=== PATIENT | male | born 1970 | race Two or more races ===

== ENCOUNTER 2017-11-27 23:07 | Observation (INO) | payer BC ==
[2017-11-27] MEDS ORDERED: SODIUM CHLORIDE 0.9% 1,000 ML IV STA ×2 (23:24)
[2017-11-27] MEDS ORDERED: ASPIRIN 81 MG PO STA (23:24)
[2017-11-27] MEDS ORDERED: NITROGLYCERIN SL TABS 0.4 MG TAB SUBLINGUAL PRN (23:24)
[2017-11-27 23:34] LABS: Basophils % (A) 1 %; Eosinophils # (A) 0.3 k/uL (0-0.7); Eosinophils % (A) 4 %; HCT 41.1 % (39.0-53.0); HGB 14.1 gm/dL (13.0-17.5); Lymphocytes # (A) 2.2 k/uL (1.0-4.8); Lymphocytes % (A) 27 %; MCH 30.3 pg (25.0-35.0); MCHC 34.3 g/dL (31.0-37.0); MCV 88.4 fL (80.0-100.0); Mean Platelet Volume 6.9; Monocytes # (A) 0.5 k/uL (0-1.0); Monocytes % (A) 6 %; Neutrophils # (A) 5.1 k/uL (1.3-7.7); Neutrophils % (A) 62 %; Platelet Count 273 k/uL (150-450); RBC 4.65 m/uL (4.30-5.90); RDW 12.9 % (11.5-15.5); WBC 8.3 k/uL (3.8-10.6)
[2017-11-27] MEDS ORDERED: HEPARIN SODIUM,PORCINE 5,000 UNIT/ML 1 ML VIAL IV PRN (23:37)
[2017-11-27] MEDS ORDERED: HEPARIN SODIUM,PORCINE 5,000 UNIT/ML 1 ML VIAL IV ONE (23:37)
--- NOTE | 2017-11-27 23:37 | ED ---
General Adult HPI - General Chief complaint: Chest Pain Stated complaint: Chest pain Time Seen by Provider: 11/27/17 23:24 Source: patient, RN notes reviewed, old records reviewed Mode of arrival: ambulatory Limitations: no limitations - History of Present Illness Initial comments: This is a 47-year-old male the ER for evaluation regarding chest pain. Patient has left-sided chest pain left-sided heaviness. Patient's history of high blood pressure strong family history of heart disease. Patient has had pain for about a week or more episodic. Patient has been seen by family doctor was told may have bronchitis, he also had outpatient stress test and echo. Patient is jaw pain occasionally with radiation down his left arm. Patient currently is pain-free - Related Data Home Medications Medication Instructions Recorded Confirmed Budesonide/Formoterol Fumarate 2 puff INHALATION RT-DAILY PRN 11/27/17 11/27/17 [Symbicort 160-4.5 Mcg Inhaler] Cyclobenzaprine [Flexeril] 10 mg PO BID 11/27/17 11/27/17 HYDROcodone/APAP 7.5-325MG [[place] 1 tab PO TID PRN 11/27/17 11/27/17 7.5-325] Losartan [Cozaar] 50 mg PO DAILY 11/27/17 11/27/17 Naproxen [Naprosyn] 375 mg PO BID 11/27/17 11/27/17 amLODIPine [Norvasc] 10 mg PO DAILY 11/27/17 11/27/17 Previous Rx's Medication Instructions Recorded Atorvastatin [Lipitor] 40 mg PO DAILY #30 tab 11/28/17 Allergies Allergy/AdvReac Type Severity Reaction Status Date / Time No Known Allergies Allergy Verified 11/27/17 23:11 Review of Systems ROS Statement: Those systems with pertinent positive or pertinent negative responses have been documented in the HPI. ROS Other: All systems not noted in ROS Statement are negative. Past Medical History Past Medical History: Hypertension History of Any Multi-Drug Resistant Organisms: None Reported Past Surgical History: Bowel Resection Past Psychological History: No Psychological Hx Reported Smoking Status: Never smoker Past Alcohol Use History: Occasional Past Drug Use History: None Reported - Past Family History Mother Family Medical History: No Reported History Father Family Medical History: Coronary Artery Disease (CAD), Myocardial Infarction ([place] ) Additional Family Medical History / Comment(s): Pt believes his father has had more than one NV with the first one being at age 47yrs. Father has had open heart surgery twice and has several stents. General Exam Limitations: no limitations General appearance: alert, in no apparent distress Head exam: Present: atraumatic, normocephalic, normal inspection Eye exam: Present: normal appearance, PERRL, EOMI. Absent: scleral icterus, conjunctival injection, periorbital swelling ENT exam: Present: normal exam, mucous membranes moist Neck exam: Present: normal inspection. Absent: tenderness, meningismus, lymphadenopathy Respiratory exam: Present: normal lung sounds bilaterally. Absent: respiratory distress, wheezes, rales, rhonchi, stridor Cardiovascular Exam: Present: regular rate, normal rhythm, normal heart sounds. Absent: systolic murmur, diastolic murmur, rubs, gallop, clicks GI/Abdominal exam: Present: soft, normal bowel sounds. Absent: distended, tenderness, guarding, rebound, rigid Extremities exam: Present: normal inspection, full ROM, normal capillary refill. Absent: tenderness, pedal edema, joint swelling, calf tenderness Back exam: Present: normal inspection Neurological exam: Present: alert, oriented X3, CN II-XII intact Psychiatric exam: Present: normal affect, normal mood Skin exam: Present: warm, dry, intact, normal color. Absent: rash Course Vital Signs 11/27/17 11/27/17 11/27/17 23:09 23:26 23:43 Temperature 97.7 F 99.6 F Pulse Rate 96 Pulse Rate [ 88 Therapy Assistant ] Respiratory 20 19 Rate Blood Pressure 135/82 O2 Sat by Pulse 98 Oximetry 11/28/17 11/28/17 11/28/17 00:12 00:51 01:42 Temperature 97.9 F Pulse Rate 78 75 69 Pulse Rate [ Therapy Assistant ] Respiratory 18 15 17 Rate Blood Pressure 142/85 141/76 133/96 O2 Sat by Pulse 97 97 96 Oximetry 11/28/17 11/28/17 11/28/17 02:40 04:00 05:13 Temperature Pulse Rate 68 61 63 Pulse Rate [ Therapy Assistant ] Respiratory 17 17 18 Rate Blood Pressure 128/74 130/72 134/78 O2 Sat by Pulse 98 98 97 Oximetry 11/28/17 11/28/17 11/28/17 07:05 08:59 10:56 Temperature 97.7 F 98.1 F Pulse Rate 77 62 60 Pulse Rate [ Therapy Assistant ] Respiratory 18 18 18 Rate Blood Pressure 132/84 133/87 132/80 O2 Sat by Pulse 98 95 Oximetry - Reevaluation(s) Reevaluation #1: 11/27/17 23:36 Request made for patient stress test and echo out of [facility] Reevaluation #2: 11/27/17 23:36 Patient has occasional chest pain here in the ER EKG Findings - EKG Comments: EKG Findings:: EKG shows normal sinus rhythm rate of 84, [place] 164, QRS 112, QTc 458 Medical Decision Making - Medical Decision Making 47 male the ER for evasive chest pain history of heart disease family history and high blood pressure. Recent had and conclusive stress test, patient to be admitted for cardiac observation - Lab Data Result diagrams: 11/28/17 05:17 11/27/17 23:24 Lab Results 11/27/17 11/27/17 11/27/17 Range/Units 23:24 23:24 23:24 WBC 8.3 (3.8-10.6) k/uL RBC 4.65 (4.30-5.90) m/uL Hgb 14.1 (13.0-17.5) gm/dL Hct 41.1 (39.0-53.0) % MCV 88.4 (80.0-100.0) fL MCH 30.3 (25.0-35.0) pg MCHC 34.3 (31.0-37.0) g/dL RDW 12.9 (11.5-15.5) % Plt Count 273 (150-450) k/uL Neutrophils % 62 % Lymphocytes % 27 % Monocytes % 6 % Eosinophils % 4 % Basophils % 1 % Neutrophils # 5.1 (1.3-7.7) k/uL Lymphocytes # 2.2 (1.0-4.8) k/uL Monocytes # 0.5 (0-1.0) k/uL Eosinophils # 0.3 (0-0.7) k/uL Basophils # 0.0 (0-0.2) k/uL PT (9.0-12.0) sec INR (<1.2) APTT (22.0-30.0) sec D-Dimer (<0.60) mg/L FEU Sodium 142 (137-145) mmol/L Potassium 3.9 (3.5-5.1) mmol/L Chloride 104 (98-107) mmol/L Carbon Dioxide 26 (22-30) mmol/L Anion Gap 12 mmol/L BUN 15 (9-20) mg/dL Creatinine 0.90 (0.66-1.25) mg/dL Est GFR (MDRD) Af Amer >60 (>60 ml/min/1.73 sqM) Est GFR (MDRD) Non-Af >60 (>60 ml/min/1.73 sqM) Glucose 142 H (74-99) mg/dL Calcium 9.9 (8.4-10.2) mg/dL Magnesium 2.0 (1.6-2.3) mg/dL Total Bilirubin 0.6 (0.2-1.3) mg/dL AST 22 (17-59) U/L ALT 43 (21-72) U/L Alkaline Phosphatase 93 (38-126) U/L Total Creatine Kinase 118 (55-170) U/L CK-MB (CK-2) 0.5 (0.0-2.4) ng/mL CK-MB (CK-2) Rel Index 0.4 Troponin I <0.012 (0.000-0.034) ng/mL Total Protein 7.1 (6.3-8.2) g/dL Albumin 4.4 (3.5-5.0) g/dL Lipase 54 (23-300) U/L 11/27/17 Range/Units 23:24 WBC (3.8-10.6) k/uL RBC (4.30-5.90) m/uL Hgb (13.0-17.5) gm/dL Hct (39.0-53.0) % MCV (80.0-100.0) fL MCH (25.0-35.0) pg MCHC (31.0-37.0) g/dL RDW (11.5-15.5) % Plt Count (150-450) k/uL Neutrophils % % Lymphocytes % % Monocytes % % Eosinophils % % Basophils % % Neutrophils # (1.3-7.7) k/uL Lymphocytes # (1.0-4.8) k/uL Monocytes # (0-1.0) k/uL Eosinophils # (0-0.7) k/uL Basophils # (0-0.2) k/uL PT 9.8 (9.0-12.0) sec INR 1.0 (<1.2) APTT 24.3 (22.0-30.0) sec D-Dimer 0.26 (<0.60) mg/L FEU Sodium (137-145) mmol/L Potassium (3.5-5.1) mmol/L Chloride (98-107) mmol/L Carbon Dioxide (22-30) mmol/L Anion Gap mmol/L BUN (9-20) mg/dL Creatinine (0.66-1.25) mg/dL Est GFR (MDRD) Af Amer (>60 ml/min/1.73 sqM) Est GFR (MDRD) Non-Af (>60 ml/min/1.73 sqM) Glucose (74-99) mg/dL Calcium (8.4-10.2) mg/dL Magnesium (1.6-2.3) mg/dL Total Bilirubin (0.2-1.3) mg/dL AST (17-59) U/L ALT (21-72) U/L Alkaline Phosphatase (38-126) U/L Total Creatine Kinase (55-170) U/L CK-MB (CK-2) (0.0-2.4) ng/mL CK-MB (CK-2) Rel Index Troponin I (0.000-0.034) ng/mL Total Protein (6.3-8.2) g/dL Albumin (3.5-5.0) g/dL Lipase (23-300) U/L - Radiology Data Radiology results: report reviewed (Chest x-rays negative for acute disease), image reviewed Critical Care Time Critical Care Time: Yes Total Critical Care Time: 31 Disposition Clinical Impression: Chest pain Disposition: ADMITTED IP TO THIS [facility] Condition: Undetermined
[2017-11-27 23:43] LABS: ALT 43 U/L (21-72); AST 22 U/L (17-59); Albumin 4.4 g/dL (3.5-5.0); Alkaline Phosphatase 93 U/L (38-126); Anion Gap 12 mmol/L; Blood Urea Nitrogen 15 mg/dL (9-20); Calcium 9.9 mg/dL (8.4-10.2); Carbon Dioxide 26 mmol/L (22-30); Chloride 104 mmol/L (98-107); Glucose 142 mg/dL (74-99); Lipase 54 U/L (23-300); Potassium 3.9 mmol/L (3.5-5.1); Sodium 142 mmol/L (137-145); Total Bilirubin 0.6 mg/dL (0.2-1.3); Total Protein 7.1 g/dL (6.3-8.2)
[2017-11-27] MEDS ORDERED: HEPARIN SOD,PORK IN 0.45% NACL 25,000 UNIT in 0.45% NACL 1 500ML.BAG IV SCH (23:45)
[2017-11-27 23:49] LABS: D-Dimer 0.26 mg/L FEU (<0.60); Partial Thromboplastin Time 24.3 sec (22.0-30.0); Prothrombin Time 9.8 sec (9.0-12.0)
[2017-11-27 23:54] LABS: Creatine Kinase 118 U/L (55-170)
[2017-11-28 00:07] LABS: Creatine Kinase MB 0.5 ng/mL (0.0-2.4); Troponin I <0.012 ng/mL (0.000-0.034)
--- NOTE | 2017-11-28 00:13 | XR ---
EXAMINATION TYPE: XR chest 2V DATE OF EXAM: 11/28/2017 COMPARISON: NONE HISTORY: Chest pain TECHNIQUE: Frontal and lateral views of the chest are obtained. FINDINGS: Heart and mediastinum are normal. Lungs are clear. Costophrenic angles are clear. There ar e no hilar masses. There are chest leads. Bony thorax is intact. IMPRESSION: Normal chest
[2017-11-28 05:28] LABS: Basophils % (A) 1 %; Eosinophils # (A) 0.3 k/uL (0-0.7); Eosinophils % (A) 5 %; HGB 14.2 gm/dL (13.0-17.5); Lymphocytes # (A) 2.4 k/uL (1.0-4.8); Lymphocytes % (A) 34 %; MCH 30.9 pg (25.0-35.0); MCHC 33.7 g/dL (31.0-37.0); MCV 91.7 fL (80.0-100.0); Mean Platelet Volume 6.7; Monocytes # (A) 0.4 k/uL (0-1.0); Monocytes % (A) 6 %; Neutrophils # (A) 3.6 k/uL (1.3-7.7); Neutrophils % (A) 52 %; Platelet Count 259 k/uL (150-450); RBC 4.58 m/uL (4.30-5.90); RDW 12.8 % (11.5-15.5)
[2017-11-28 05:55] LABS: Cholesterol 150 mg/dL (<200); Creatine Kinase 91 U/L (55-170); HDL Cholesterol 41 mg/dL (40-60); LDL Cholesterol,Calculated 86 mg/dL (0-99); Triglycerides 117 mg/dL (<150)
[2017-11-28 06:07] LABS: Creatine Kinase MB 0.3 ng/mL (0.0-2.4); Troponin I <0.012 ng/mL (0.000-0.034)
[2017-11-28] MEDS ORDERED: ACETAMINOPHEN TAB 325 MG TAB PO PRN (08:56)
[2017-11-28] MEDS ORDERED: ASPIRIN 325 MG TAB PO SCH (09:00)
[2017-11-28] MEDS ORDERED: METOPROLOL TARTRATE 25 MG TAB PO SCH (09:00)
[2017-11-28] MEDS ORDERED: ATORVASTATIN 80 MG TAB PO SCH (09:00)
[2017-11-28] MEDS ORDERED: ALPRAZolam 0.5 MG TAB PO PRN (10:07)
[2017-11-28] MEDS ORDERED: ALPRAZolam 0.25 MG TAB PO PRN (10:07)
[2017-11-28] MEDS ORDERED: SODIUM CHLORIDE 0.9% 1,000 ML in EMPTY BAG 1 BAG IV ONE (10:07)
[2017-11-28] MEDS ORDERED: ATORVASTATIN 80 MG TAB PO STA (10:08)
--- NOTE | 2017-11-28 10:14 | P.CRDCN ---
History of Present Illness Consult date: 11/28/17 Consult reason: chest pain History of present illness: Mr. Valladares is a pleasant 47-year-old male past medical history significant for hypertension, gastroesophageal reflux disease, former tobacco use and family history of heart attack with his father at the age of 47. He denies personal history of coronary artery disease and has never seen a diet aid for any reason. We have been asked to see him in consultation for complaints of chest pain. He states he has been having intermittent heavy sensation to the left precordial region that radiates into his neck, back, left should and left arm. He complains of associated shortness of breath, palpitations and diaphoresis. Denies dizziness, nausea or vomiting. The pains come and go and seem worse at rest than with exertion. He recently saw his PCP for similar complaints and underwent an exercise stress test but didn't reach his target heart rate. Although he did exercise for over 9 minutes. An echocardiogram performed at that time revealed preserved LV systolic function with EF 65%. At the time of my exam he is chest pain free and resting comfortably on the cart in the emergency center. EKG reveals sinus mechanism with T-wave inversion in inferior leads that is consistent with old EKG from [facility] taken during his stress test. Chest xray is negative for an acute cardiopulmonary process. Laboratory data reviewed, hemoglobin 14.2, platelets 259, d-dimer 0.26, potassium 3.9, magnesium 2.0, creatinine 0.9, EF greater than 60, cardiac enzymes negative 2, LDL 86. Current cardiac medications include amlodipine 10 mg daily losartan 50 mg daily. Review of Systems At the time of my exam: CONSTITUTIONAL: Denies fever. Denies chills. EYES: Denies blurred vision. Denies vision changes. Denies eye pain. EARS, NOSE, MOUTH & THROAT: Denies headache. Denies sore throat. Denies ear pain. CARDIOVASCULAR: Denies chest pain. Denies shortness of breath. Denies orthopnea. Denies PND. Denies palpitations. RESPIRATORY: Denies cough. GASTROINTESTINAL: Denies abdominal pain. Denies diarrhea. Denies constipation. Denies nausea. Denies vomiting. MUSCULOSKELETAL: Denies myalgias. INTEGUMENTARY: Denies pruitis. Denies rash. NEUROLOGIC: Denies numbness. Denies tingling. Denies weakness. PSYCHIATRIC: Denies anxiety. Denies depression. ENDOCRINE: Denies fatigue. Denies weight change. Denies polydipsia. Denies polyurina. GENITOURINARY: Denies burning, hematuria or urgency with micturation. HEMATOLOGIC: Denies history of anemia. Denies bleeding. Past Medical History Past Medical History: GERD/Reflux, Hypertension, Pneumonia Additional Past Medical History / Comment(s): Chronic low back pain L4/L5, pt states asbestos exposure thru work, diverticulitis. History of Any Multi-Drug Resistant Organisms: None Reported Past Surgical History: Bowel Resection, Tonsillectomy Additional Past Surgical History / Comment(s): Colonoscopy, bowel resection d/t diverticulitis. Past Anesthesia/Blood Transfusion Reactions: No Reported Reaction Smoking Status: Former smoker - Past Family History Mother Family Medical History: No Reported History Father Family Medical History: Coronary Artery Disease (CAD), Myocardial Infarction ([place] ) Additional Family Medical History / Comment(s): Pt believes his father has had more than one UT with the first one being at age 47yrs. Father has had open heart surgery twice and has several stents. Medications and Allergies Home Medications Medication Instructions Recorded Confirmed Type Budesonide/Formoterol Fumarate 2 puff INHALATION RT-DAILY PRN 11/27/17 11/27/17 History [Symbicort 160-4.5 Mcg Inhaler] Cyclobenzaprine [Flexeril] 10 mg PO BID 11/27/17 11/27/17 History HYDROcodone/APAP 7.5-325MG [[place] 1 tab PO TID PRN 11/27/17 11/27/17 History 7.5-325] Losartan [Cozaar] 50 mg PO DAILY 11/27/17 11/27/17 History Naproxen [Naprosyn] 375 mg PO BID 11/27/17 11/27/17 History amLODIPine [Norvasc] 10 mg PO DAILY 11/27/17 11/27/17 History Allergies Allergy/AdvReac Type Severity Reaction Status Date / Time No Known Allergies Allergy Verified 11/27/17 23:11 Physical Exam Vitals: Vital Signs Temp Pulse Pulse Resp BP Pulse Ox 11/28/17 08:59 97.7 F 62 18 133/87 11/28/17 07:05 77 18 132/84 98 11/28/17 05:13 63 18 134/78 97 03/01/18 04:00 61 17 130/72 98 11/28/17 02:40 68 17 128/74 98 11/28/17 01:42 69 17 133/96 96 11/28/17 00:51 97.9 F 75 15 141/76 97 11/28/17 00:12 78 18 142/85 97 11/27/17 23:43 99.6 F 11/27/17 23:26 88 19 11/27/17 23:09 97.7 F 96 20 135/82 98 Intake and Output 11/27/17 11/28/17 11/28/17 22:59 06:59 14:59 Intake Total 143.667 Balance 143.667 Intake: Intake, IV Titration 143.667 Amount Heparin Sod,Pork in 0.45% 143.667 NaCl 25,000 unit In 0.45 % NaCl 1 500ml.bag @ 8.2 UNITS/KG/HR 20.08 mls/hr IV .Q24H [facility] Rx#: [id number] Other: Weight 122.47 kg Blood pressure 133/87 heart rate 62 afebrile GENERAL: This is a 47-year-old male in no apparent distress at the time of my examination. Obese. HEENT: Head is atraumatic, normocephalic. Pupils are equal, round. Sclerae anicteric. Conjunctivae are clear. Mucous membranes of the mouth are moist. Neck is supple. There is no jugular venous distention. No carotid bruit is heard. LUNGS: Clear to auscultation no wheezes, rales or rhonchi. No chest wall tenderness is noted on palpation or with deep breathing. HEART: Regular rate and rhythm without murmurs, rubs or gallops. S1 and S2 heard. ABDOMEN: Soft, nontender. Bowel sounds are heard. No organomegaly noted. EXTREMITIES: No evidence of peripheral edema and no calf tenderness noted. VASCULAR: Radial and dorsalis pedis pulses palpated, no evidence of clubbing. NEUROLOGIC: Patient is awake, alert and oriented x3. Results 11/28/17 05:17 11/27/17 23:24 Cardiac Enzymes 11/27/17 11/27/17 11/28/17 Range/Units 23:24 23:24 05:17 AST 22 (17-59) U/L CK-MB (CK-2) 0.5 0.3 (0.0-2.4) ng/mL Troponin I <0.012 <0.012 (0.000-0.034) ng/mL Coagulation 11/27/17 11/28/17 Range/Units 23:24 05:17 PT 9.8 (9.0-12.0) sec APTT 24.3 27.3 (22.0-30.0) sec Lipids 11/28/17 Range/Units 05:17 Triglycerides 117 (<150) mg/dL Cholesterol 150 (<200) mg/dL HDL Cholesterol 41 (40-60) mg/dL CBC 11/27/17 11/28/17 Range/Units 23:24 05:17 WBC 8.3 7.0 (3.8-10.6) k/uL RBC 4.65 4.58 (4.30-5.90) m/uL Hgb 14.1 14.2 (13.0-17.5) gm/dL Hct 41.1 42.0 (39.0-53.0) % Plt Count 273 259 (150-450) k/uL Comprehensive Metabolic Panel 11/27/17 Range/Units 23:24 Sodium 142 (137-145) mmol/L Potassium 3.9 (3.5-5.1) mmol/L Chloride 104 (98-107) mmol/L Carbon Dioxide 26 (22-30) mmol/L BUN 15 (9-20) mg/dL Creatinine 0.90 (0.66-1.25) mg/dL Glucose 142 H (74-99) mg/dL Calcium 9.9 (8.4-10.2) mg/dL AST 22 (17-59) U/L ALT 43 (21-72) U/L Alkaline Phosphatase 93 (38-126) U/L Total Protein 7.1 (6.3-8.2) g/dL Albumin 4.4 (3.5-5.0) g/dL Current Medications Generic Name Dose Route Start Last Admin Trade Name Freq PRN Reason Stop Dose Admin Acetaminophen 650 mg 11/28/17 08:56 11/28/17 09:00 Tylenol Tab PO 650 mg Q6HR PRN Administration Fever and/ or Pain Aspirin 325 mg 11/28/17 09:00 03/01/18 09:00 Aspirin PO 325 mg DAILY RADHA Administration Atorvastatin Calcium 80 mg 11/28/17 09:00 11/28/17 09:01 Lipitor PO 80 mg DAILY RADHA Administration Heparin Sodium (Porcine) 0 unit 11/27/17 23:37 11/28/17 07:30 Heparin IV 4,000 unit PER PROTOCOL PRN Administration Low PTT Protocol Heparin Sodium/Sodium Chloride 500 mls @ 20.08 mls/hr 11/27/17 23:45 07:20 25,000 unit/ Sodium Chloride IV 11.16 units/kg/hr .Q24H RADHA 27.33 mls/hr Protocol Titration 8.2 UNITS/KG/HR Metoprolol Tartrate 25 mg 11/28/17 09:00 11/28/17 09:01 Lopressor PO 25 mg BID RADHA Administration Nitroglycerin 0.4 mg 11/27/17 23:24 Nitrostat SUBLINGUAL Q5M PRN Chest Pain Intake and Output 11/27/17 11/28/17 11/28/17 22:59 06:59 14:59 Intake Total 143.667 Balance 143.667 Intake: Intake, IV Titration 143.667 Amount Heparin Sod,Pork in 0.45% 143.667 NaCl 25,000 unit In 0.45 % NaCl 1 500ml.bag @ 8.2 UNITS/KG/HR 20.08 mls/hr IV .Q24H [facility] Rx#: [id number] Other: Weight 122.47 kg 11/28/17 05:17 11/27/17 23:24 Assessment and Plan Assessment: ASSESSMENT 1. Unstable angina, negative cardiac enzymes with inferior T-wave inversion on EKG 2. Hypertension, controlled on amlodipine and losartan 3. Tobacco use, quit smoking 2007 but continues to chew tobacco 4. Obesity, BMI 37.7 5. Significant family history of CAD, father having [place] with multiple stents and bypass starting in 's. PLAN We recommend he proceed with cardiac catheterization to assess for coronary artery disease. I have discussed the risks, benefits and alternative therapies for the above-mentioned procedure and for both sedation/analgesia as well as necessary blood product administration, if indicated, as they pertain to this patient. The patient has indicated understanding and acceptance of the risks and procedures discussed. Questions have been answered appropriately and he is agreeable to move forward with the above stated procedure. Orders have been placed and he has been reported with the [employer] [facility]. Further recommendations will be based upon clinical course. Nurse Practitioner note has been reviewed, I agree with a documented findings and plan of care. Patient was seen and examined.
[2017-11-28 10:58] VITALS: TEMP 98.1
[2017-11-28 11:03] LABS: Glucose,Whole Blood 105 mg/dL (75-99)
[2017-11-28] MEDS ORDERED: MIDAZOLAM 2 MG/2 ML VIAL ONE (11:26)
[2017-11-28] MEDS ORDERED: LIDOCAINE 2% INJ 20 MG/ML (20 ML MDV) ONE (11:26)
[2017-11-28] MEDS ORDERED: fentaNYL (PF) 50 MCG/ML 2 ML AMP ONE (11:26)
[2017-11-28 11:44] LABS: Creatine Kinase 86 U/L (55-170)
[2017-11-28] MEDS ORDERED: LIDOCAINE 2% INJ 20 MG/ML SQ ONE (11:50)
[2017-11-28] MEDS ORDERED: MIDAZOLAM 2 MG/2 ML VIAL IVP ONE (11:51)
[2017-11-28] MEDS ORDERED: fentaNYL (PF) 50 MCG/ML 2 ML AMP IVP ONE (11:51)
[2017-11-28 11:56] LABS: Creatine Kinase MB 0.3 ng/mL (0.0-2.4); Troponin I <0.012 ng/mL (0.000-0.034)
[2017-11-28] MEDS ORDERED: IOHEXOL 350 MG/ML 125ML BOTTLE INJ ONE (12:07)
[2017-11-28] MEDS ORDERED: SODIUM CHLORIDE 0.9% 1,000 ML IV ONE (12:08)
[2017-11-28] MEDS ORDERED: RX INFO: IV CONTRAST WAS GIVEN 1 EACH MISC MISCELLANE PRN (12:18)
[2017-11-28] MEDS ORDERED: SODIUM CHLORIDE 0.9% 1,000 ML IV SCH (12:30)
--- NOTE | 2017-11-28 12:51 | CC ---
CARDIAC CATHETERIZATION REPORT CARDIAC CATHETERIZATION REPORT: Mr. Valladares is a 47-year-old gentleman who was admitted to the hospital with a prolonged episode of chest pain suggestive of unstable angina syndrome. The patient had a recent stress test which was inconclusive to diagnose ischemia. Patient's EKGs and cardiac enzymes were normal. In view of the recurrent episodes of the resting pain, patient was recommended to have a cardiac catheterization for definitive diagnosis. PROCEDURE: The right groin was prepped and draped in the usual manner and the skin was infiltrated with 2% Xylocaine. The right femoral artery was entered using Seldinger technique, a #6-[place] sheath was placed in. Selective coronary angiography was then performed in multiple projections. The left ventriculography was performed in 30 degree TOUSSAINT projection. Patient tolerated the procedure well. . Moderate sedation was used. The total sedation time was 24 minutes. HEMODYNAMICS: Left ventricular end-diastolic pressure is 12 mmHg prior to angiography. No gradient is noted across the aortic valve. SELECTIVE CORONARY ANGIOGRAPHY: Left main coronary artery is normally patent. LAD is a good caliber blood vessel and gives rise to a good size diagonal branch. LAD is normal. Circumflex coronary artery has minimal irregularity. Right coronary artery has a mild irregularity in its distal portion without any significant stenosis. Left ventriculography reveals normal, left ventricular systolic function. FINAL IMPRESSION: 1. This study reveals minimal coronary artery disease with stenosis less than 30%. 2. Left ventriculography reveals normal left ventricular systolic functions. RECOMMENDATIONS: Medical treatment and aggressive risk factor modification. MMODL / IJN: [id number] /
[2017-11-28 14:45] VITALS: RESP 16
[2017-11-28 15:56] VITALS: BP 125/72; PULSE 72
--- NOTE | 2017-11-28 18:25 | HP ---
HISTORY AND PHYSICAL HISTORY AND PHYSICAL AND DISCHARGE SUMMARY: DATE OF ADMISSION: 11/27/2017. DATE OF DISCHARGE: 11/28/2017 FINAL DIAGNOSES: 1. Anterior chest wall pain, possibly musculoskeletal. 2. Gastroesophageal reflux disease. 3. Essential hypertension. 4. Chronic low back pain in the lumbar L4-L5 area. PRESENTING COMPLAINT: Chest pain. HISTORY OF PRESENTING COMPLAINT: This is a very pleasant 47-year-old patient of Dr. Toney Colon out of [facility]. Chronic stable medical conditions include GERD, hypertension, lumbar back pain in the L4-L5 area. Patient presented with feeling a heavy sensation across the chest going up to the neck. Patient went to work and later felt a little bit just unwell, tired. There was no shortness of breath. Patient is rather active otherwise. He decided to come in. Patient was admitted for a cardiac workup. REVIEW OF SYSTEMS: CONSTITUTIONAL: None. HEENT: None. RESPIRATORY: None. CARDIOVASCULAR: As above. GASTROINTESTINAL: Heartburn. GENITOURINARY: None. MUSCULOSKELETAL: Chronic low back pain. DERMATOLOGICAL: None. HEMATOLOGICAL: None. LYMPHATICS: None. PSYCHIATRY: None. NEUROLOGICAL: None. PAST MEDICAL HISTORY: 1. GERD. 2. Hypertension. 3. Lumbar spine pain. 4. Diverticulitis. PAST SURGICAL HISTORY: 1. Bowel resection. 2. Tonsillectomy. 3. Colonoscopy. 4. Some bowel resection due to diverticulitis. SOCIAL HISTORY: . 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 Smoked for about 20 years; stopped in 2007. Patient does chew tobacco. FAMILY HISTORY: Father probably in his late 40s had coronary artery disease. HOME MEDICATIONS: 1. Symbicort 160/4.5 two puffs daily p.r.n. 2. Flexeril 10 mg b.i.d. 3. Lydia 7.5 one tablet p.o. t.i.d. p.r.n. 4. Cozaar 50 mg p.o. daily. 5. Naproxen 375 p.o. b.i.d. 6. Norvasc 10 mg p.o. daily. ALLERGIES: NONE. PHYSICAL EXAMINATION: VITAL SIGNS ON PRESENTATION: Temperature 97.7, pulse 92, respiration 20, blood pressure 135/82, pulse ox 98% on room air. GENERAL APPEARANCE: Well built, BMI 37.7. Sitting up, not in distress. EYES: Pupils equal. Conjunctivae normal. HEENT: External appearance of nose and ears normal. Oral cavity normal. NECK: JVD not raised. Mass not palpable. RESPIRATORY: Effort normal. Lungs are clear. CARDIOVASCULAR: First and second sounds normal. No edema. ABDOMEN: Soft, nontender. Liver and spleen not palpable. LYMPHATIC: No lymph node palpable in neck or axillae. PSYCHIATRY: Alert and oriented x3. Mood and affect normal. NEUROLOGICAL: Pupils equal. Cranial nerves grossly intact. Power and sensation grossly intact. INVESTIGATIONS: White count 8.3, hemoglobin 14.1. Troponin x3 negative. EKG normal sinus rhythm. Cardiac catheterization showed minimal coronary artery disease with stenosis less than 30%. ADDITIONAL HOSPITAL COURSE: The patient was admitted with the above symptoms. Patient then was taken for a cardiac catheterization, found to have minimal disease. Patient therefore is being discharged home. DISCHARGE MEDICATIONS: 1. Lipitor 40 mg a day. 2. Norvasc 10 mg a day. 3. Naproxen 375 p.o. b.i.d. 4. Cozaar 50 mg a day. 5. Lydia 7.5 one tablet p.o. t.i.d. p.r.n. 6. Flexeril 10 mg p.o. b.i.d. 7. Symbicort 160/4.5 two puffs as before. Follow up with Dr. Toney Colon on 11/29/2017. Follow up with Dr. Rl Thompson on 12/04/2017. Post-catheterization instructions were given. MMODL / IJN: [id number] /
[2017-11-29] MEDS ORDERED: amLODIPine 10 MG TAB PO SCH (09:00)
[2017-11-29] MEDS ORDERED: ATORVASTATIN 40 MG TAB PO SCH (09:00)
[2017-11-29] MEDS ORDERED: LOSARTAN 50 MG TAB PO SCH (09:00)
== END 2017-11-28 16:46 | disposition home or self-care (01) ==
LOC: EC 23:07 → 3OBS 23:36
PROVIDERS: ADMIT Hospitalist; ATTEND Hospitalist
DX: R07.89 Other chest pain (principal); R07.2 Precordial pain; R06.02 Shortness of breath; R61 Generalized hyperhidrosis; R00.2 Palpitations; K21.9 Gastro-esophageal reflux disease without esophagitis; I10 Essential (primary) hypertension; G89.29 Other chronic pain; M54.5 Low back pain; E66.9 Obesity, unspecified; Z68.37 Body mass index [BMI] 37.0-37.9, adult; Z82.49 Family history of ischemic heart disease and other diseases of the circulatory system; Z79.899 Other long term (current) drug therapy; F17.220 Nicotine dependence, chewing tobacco, uncomplicated; Z79.1 Long term (current) use of non-steroidal anti-inflammatories (NSAID); Z87.01 Personal history of pneumonia (recurrent); Z77.090 Contact with and (suspected) exposure to asbestos
CPT/HCPCS: 99291; 96365 ×2; 96366 ×10; 96376 ×3; 36415; 93005; 93458; 85379; 80061; 80053; 82550 ×2; 82553 ×2; 83690; 83735; 84484 ×2; 85025 ×2; 85610; 85730 ×2; 71046; G0378 ×2; C1894; C1769; J2001; J2250; J1644 ×2; J3010; Q9967

== ENCOUNTER 2020-12-07 16:28 | Emergency (ER) | payer BC ==
[2020-12-07] MEDS ORDERED: ACETAMINOPHEN TAB 500 MG TAB PO STA (17:47)
[2020-12-07 18:17] LABS: Basophils # (A) 0.1 k/uL (0-0.2); Basophils % (A) 2 %; Eosinophils # (A) 0.1 k/uL (0-0.7); Eosinophils % (A) 1 %; HCT 43.6 % (39.0-53.0); HGB 15.6 gm/dL (13.0-17.5); Lymphocytes # (A) 0.6 k/uL (1.0-4.8); Lymphocytes % (A) 14 %; MCH 31.4 pg (25.0-35.0); MCHC 35.8 g/dL (31.0-37.0); MCV 87.6 fL (80.0-100.0); Mean Platelet Volume 7.5; Monocytes # (A) 0.3 k/uL (0-1.0); Monocytes % (A) 7 %; Neutrophils # (A) 3.2 k/uL (1.3-7.7); Neutrophils % (A) 75 %; Platelet Count 174 k/uL (150-450); RBC 4.98 m/uL (4.30-5.90); RDW 12.3 % (11.5-15.5); WBC 4.3 k/uL (3.8-10.6)
[2020-12-07 18:27] LABS: Albumin 4.7 g/dL (3.5-5.0); Magnesium 1.9 mg/dL (1.6-2.3); Potassium 3.5 mmol/L (3.5-5.1); Total Protein 7.4 g/dL (6.3-8.2)
--- NOTE | 2020-12-07 18:31 | XR ---
EXAMINATION TYPE: XR chest 1V portable DATE OF EXAM: 12/07/2020 COMPARISON: NONE HISTORY: Dyspnea TECHNIQUE: Single frontal view of the chest is obtained. FINDINGS: There is no focal air space opacity, pleural effusion, or pneumothorax seen. The cardiac silhouette size is within normal limits. The osseous structures are intact. IMPRESSION: No acute process.
[2020-12-07 18:33] LABS: D-Dimer 0.42 mg/L FEU (<0.60); Partial Thromboplastin Time 25.8 sec (22.0-30.0); Prothrombin Time 10.6 sec (9.0-12.0)
[2020-12-07] MEDS ORDERED: SODIUM CHLORIDE 0.9% 1,000 ML IV STA (18:37)
[2020-12-07] MEDS ORDERED: IBUPROFEN 800 MG TAB PO STA (18:37)
[2020-12-07] MEDS ORDERED: dexAMETHasone 2 MG TAB PO STA (19:14)
--- NOTE | 2020-12-07 19:14 | ED ---
SOB HPI - General Chief Complaint: Shortness of Breath Stated Complaint: Covid+, SOB Time Seen by Provider: 12/07/20 17:46 Source: patient Mode of arrival: ambulatory Limitations: no limitations - History of Present Illness Initial Comments: Patient presents with shortness of breath. He has been sick recently. He has a nonproductive cough. He has no nausea or vomiting. He has no diaphoresis. He has no pain or swelling in the arms or legs. He has no lightheadedness. He denies palpitations. - Related Data Home Medications Medication Instructions Recorded Confirmed Budesonide/Formoterol Fumarate 2 puff INHALATION RT-DAILY PRN 11/27/17 11/27/17 [Symbicort 160-4.5 Mcg Inhaler] Cyclobenzaprine [Flexeril] 10 mg PO BID 11/27/17 11/27/17 HYDROcodone/APAP 7.5-325MG [[place] 1 tab PO TID PRN 11/27/17 11/27/17 7.5-325] Losartan [Cozaar] 50 mg PO DAILY 11/27/17 11/27/17 Naproxen [Naprosyn] 375 mg PO BID 11/27/17 11/27/17 amLODIPine [Norvasc] 10 mg PO DAILY 11/27/17 11/27/17 Previous Rx's Medication Instructions Recorded Atorvastatin [Lipitor] 40 mg PO DAILY #30 tab 11/28/17 Allergies Allergy/AdvReac Type Severity Reaction Status Date / Time Ggkdmbi-Sro-Lnc Reductase Allergy Cough Verified 12/07/20 16:34 Inhibitor Review of Systems ROS Statement: Those systems with pertinent positive or pertinent negative responses have been documented in the HPI. ROS Other: All systems not noted in ROS Statement are negative. Past Medical History Past Medical History: Hypertension Additional Past Medical History / Comment(s): Chronic low back pain L4/L5, pt states asbestos exposure thru work, diverticulitis. History of Any Multi-Drug Resistant Organisms: None Reported Past Surgical History: Bowel Resection Additional Past Surgical History / Comment(s): Colonoscopy, bowel resection d/t diverticulitis. Past Anesthesia/Blood Transfusion Reactions: No Reported Reaction Past Psychological History: No Psychological Hx Reported Smoking Status: Former smoker Past Alcohol Use History: Occasional Past Drug Use History: None Reported - Past Family History Mother Family Medical History: No Reported History Father Family Medical History: Coronary Artery Disease (CAD), Myocardial Infarction (OK) Additional Family Medical History / Comment(s): Pt believes his father has had more than one OK with the first one being at age 47yrs. Father has had open heart surgery twice and has several stents. General Exam Limitations: no limitations General appearance: alert, in no apparent distress Head exam: Present: atraumatic, normocephalic, normal inspection Eye exam: Present: normal appearance, PERRL, EOMI. Absent: scleral icterus, conjunctival injection, periorbital swelling ENT exam: Present: normal exam, mucous membranes moist Neck exam: Present: normal inspection. Absent: tenderness, meningismus, lymphadenopathy Respiratory exam: Present: normal lung sounds bilaterally. Absent: respiratory distress, wheezes, rales, rhonchi, stridor Cardiovascular Exam: Present: regular rate, normal rhythm, normal heart sounds. Absent: systolic murmur, diastolic murmur, rubs, gallop, clicks GI/Abdominal exam: Present: soft, normal bowel sounds. Absent: distended, tenderness, guarding, rebound, rigid Extremities exam: Present: normal inspection, full ROM, normal capillary refill. Absent: tenderness, pedal edema, joint swelling, calf tenderness Back exam: Present: normal inspection Neurological exam: Present: alert, oriented X3, CN II-XII intact Psychiatric exam: Present: normal affect, normal mood Skin exam: Present: warm, dry, intact, normal color. Absent: rash Course Vital Signs 12/07/20 16:30 Temperature 100.3 F H Pulse Rate 92 Respiratory 20 Rate Blood Pressure 121/81 O2 Sat by Pulse 95 Oximetry Medical Decision Making - Medical Decision Making Patient presents with cough. Imaging and laboratory studies are normal. H&H treated with IV therapy. He is stable for discharge. - Lab Data Result diagrams: 12/07/20 18:08 12/07/20 18:08 Lab Results 12/07/20 12/07/20 12/07/20 Range/Units 18:08 18:08 18:08 WBC 4.3 (3.8-10.6) k/uL RBC 4.98 (4.30-5.90) m/uL Hgb 15.6 (13.0-17.5) gm/dL Hct 43.6 (39.0-53.0) % MCV 87.6 (80.0-100.0) fL MCH 31.4 (25.0-35.0) pg MCHC 35.8 (31.0-37.0) g/dL RDW 12.3 (11.5-15.5) % Plt Count 174 (150-450) k/uL MPV 7.5 Neutrophils % 75 % Lymphocytes % 14 % Monocytes % 7 % Eosinophils % 1 % Basophils % 2 % Neutrophils # 3.2 (1.3-7.7) k/uL Lymphocytes # 0.6 L (1.0-4.8) k/uL Monocytes # 0.3 (0-1.0) k/uL Eosinophils # 0.1 (0-0.7) k/uL Basophils # 0.1 (0-0.2) k/uL PT 10.6 (9.0-12.0) sec INR 1.0 (<1.2) APTT 25.8 (22.0-30.0) sec D-Dimer 0.42 (<0.60) mg/L FEU Sodium 135 L (137-145) mmol/L Potassium 3.5 (3.5-5.1) mmol/L Chloride 95 L (98-107) mmol/L Carbon Dioxide 25 (22-30) mmol/L Anion Gap 15 mmol/L BUN 24 H (9-20) mg/dL Creatinine 1.87 H (0.66-1.25) mg/dL Est GFR (CKD-EPI)AfAm 48 (>60 ml/min/1.73 sqM) Est GFR (CKD-EPI)NonAf 41 (>60 ml/min/1.73 sqM) Glucose 115 H (74-99) mg/dL Plasma Lactic Acid Zaheer (0.7-2.0) mmol/L Calcium 9.0 (8.4-10.2) mg/dL Magnesium 1.9 (1.6-2.3) mg/dL Total Bilirubin 1.0 (0.2-1.3) mg/dL AST 45 (17-59) U/L ALT 43 (4-49) U/L Alkaline Phosphatase 46 (38-126) U/L Troponin I (0.000-0.034) ng/mL NT-Pro-B Natriuret Pep pg/mL Total Protein 7.4 (6.3-8.2) g/dL Albumin 4.7 (3.5-5.0) g/dL 12/07/20 12/07/20 12/07/20 Range/Units 18:08 18:08 18:08 WBC (3.8-10.6) k/uL RBC (4.30-5.90) m/uL Hgb (13.0-17.5) gm/dL Hct (39.0-53.0) % MCV (80.0-100.0) fL MCH (25.0-35.0) pg MCHC (31.0-37.0) g/dL RDW (11.5-15.5) % Plt Count (150-450) k/uL MPV Neutrophils % % Lymphocytes % % Monocytes % % Eosinophils % % Basophils % % Neutrophils # (1.3-7.7) k/uL Lymphocytes # (1.0-4.8) k/uL Monocytes # (0-1.0) k/uL Eosinophils # (0-0.7) k/uL Basophils # (0-0.2) k/uL PT (9.0-12.0) sec INR (<1.2) APTT (22.0-30.0) sec D-Dimer (<0.60) mg/L FEU Sodium (137-145) mmol/L Potassium (3.5-5.1) mmol/L Chloride (98-107) mmol/L Carbon Dioxide (22-30) mmol/L Anion Gap mmol/L BUN (9-20) mg/dL Creatinine (0.66-1.25) mg/dL Est GFR (CKD-EPI)AfAm (>60 ml/min/1.73 sqM) Est GFR (CKD-EPI)NonAf (>60 ml/min/1.73 sqM) Glucose (74-99) mg/dL Plasma Lactic Acid Zaheer 1.2 (0.7-2.0) mmol/L Calcium (8.4-10.2) mg/dL Magnesium (1.6-2.3) mg/dL Total Bilirubin (0.2-1.3) mg/dL AST (17-59) U/L ALT (4-49) U/L Alkaline Phosphatase (38-126) U/L Troponin I <0.012 (0.000-0.034) ng/mL NT-Pro-B Natriuret Pep 39 pg/mL Total Protein (6.3-8.2) g/dL Albumin (3.5-5.0) g/dL 12/07/20 19:13 Twelve-lead EKG shows ventricular rate 71 bpm, normal UT interval and QRS c omplex is, no ST elevation or depression, interpreted by me as normal sinus rhythm. Disposition Clinical Impression: COVID-19 Disposition: HOME SELF-CARE Condition: Good Instructions (If sedation given, give patient instructions): Coronavirus Disease 2019 (COVID-19) Is patient prescribed a controlled substance at d/c from ED?: No Referrals: Matthew Colon MD [Primary Care Provider] - 1-2 days
[2020-12-07] MEDS ORDERED: BAMLANIVIMAB 700 MG in SODIUM CHLORIDE 0.9% 50 ML IVPB ONE (20:00)
[2020-12-07 20:58] VITALS: RESP 18
[2020-12-07 21:18] VITALS: BP 118/70; PULSE 75; TEMP 98.8
== END 2020-12-07 21:11 | disposition home or self-care (01) ==
LOC: EC 16:28
DX: U07.1 COVID-19 (principal); I10 Essential (primary) hypertension; G89.29 Other chronic pain; M54.5 Low back pain; Z79.51 Long term (current) use of inhaled steroids; Z79.1 Long term (current) use of non-steroidal anti-inflammatories (NSAID); Z79.899 Other long term (current) drug therapy; Z79.891 Long term (current) use of opiate analgesic; Z88.8 Allergy status to other drugs, medicaments and biological substances; Z98.84 Bariatric surgery status; Z87.19 Personal history of other diseases of the digestive system; Z87.891 Personal history of nicotine dependence; Z82.49 Family history of ischemic heart disease and other diseases of the circulatory system
CPT/HCPCS: 36415; 93005; 85379; 83880; 80053; 83605; 83735; 84484; 85025; 85610; 85730; 71045; J8540; Q0239; 96361; 96365; 99285

== ENCOUNTER 2020-12-15 11:11 | Emergency (ER) | payer BC ==
[2020-12-15 11:22] VITALS: RESP 18; TEMP 98.2
--- NOTE | 2020-12-15 12:51 | XR ---
EXAMINATION TYPE: XR chest 2V DATE OF EXAM: 12/15/2020 COMPARISON: 12/07/2020 TECHNIQUE: PA and lateral views submitted. HISTORY: Shortness of breath FINDINGS: There is a new area of consolidation the right upper lobe. Left lung is clear. Heart size normal. No pleural effusion or pneumothorax. No overt failure. IMPRESSION: 1. Right upper lobe infiltrate correlate for pneumonia.
[2020-12-15 12:53] LABS: Basophils % (A) 0 %; Eosinophils # (A) 0.4 k/uL (0-0.7); Eosinophils % (A) 2 %; Lymphocytes # (A) 0.7 k/uL (1.0-4.8); Lymphocytes % (A) 4 %; MCH 30.9 pg (25.0-35.0); MCHC 34.8 g/dL (31.0-37.0); MCV 88.8 fL (80.0-100.0); Monocytes # (A) 0.4 k/uL (0-1.0); Monocytes % (A) 3 %; Neutrophils # (A) 15.4 k/uL (1.3-7.7); Neutrophils % (A) 91 %; RBC 4.84 m/uL (4.30-5.90); RDW 12.1 % (11.5-15.5)
[2020-12-15 13:05] LABS: Albumin 4.2 g/dL (3.5-5.0); Calcium 9.6 mg/dL (8.4-10.2); Potassium 4.1 mmol/L (3.5-5.1); Total Bilirubin 0.9 mg/dL (0.2-1.3)
[2020-12-15 13:06] LABS: Platelet Count 416 k/uL (150-450)
[2020-12-15 13:15] VITALS: PULSE 71
--- NOTE | 2020-12-15 14:18 | ED ---
SOB HPI - General Chief Complaint: Shortness of Breath Stated Complaint: revisit - Covid+, SOB Time Seen by Provider: 12/15/20 12:01 Source: patient Mode of arrival: ambulatory Limitations: no limitations - History of Present Illness Initial Comments: Patient is a 50-year-old male presenting to the emergency department for reexamination. Patient was diagnosed with Covid 10 days ago, his symptoms began the day before. He states he was rechecked by his PCP on Saturday because he was developing more shortness of breath. He did have an x-ray at that time which showed no acute changes, he was started on azithromycin, decradon as well as an inhaler. Patient states he continues to feel little short of breath so he decided to come into the ER today for reexamination. Denies any chest pain but does have some tightness when he coughs. He denies any fevers, no abdominal pain, no nausea or vomiting. He states he has been trying to drink a lot of w ater. He states his appetite is still a little low. He denies any further complaints at this time. Upon arrival to the ER, his vital signs are stable. - Related Data Home Medications Medication Instructions Recorded Confirmed Cyclobenzaprine [Flexeril] 10 mg PO BID PRN 11/27/17 12/15/20 HYDROcodone/APAP 7.5-325MG [[place] 1 tab PO TID PRN 11/27/17 12/15/20 7.5-325] amLODIPine [Norvasc] 10 mg PO DAILY 11/27/17 12/15/20 Albuterol Sulfate [Proair Hfa] 1 - 2 puff INHALATION RT-Q6H PRN 12/15/20 12/15/20 Azelastine HCl [Astepro] 1 spray EA NOSTRIL PC-LUNCH 12/15/20 12/15/20 Azithromycin [Zithromax] 500 mg PO DAILY 12/15/20 12/15/20 Cetirizine HCl [Zyrtec] 10 mg PO HS 12/15/20 12/15/20 Dexamethasone [Decadron] 6 mg PO DAILY 12/15/20 12/15/20 Ezetimibe [Zetia] 10 mg PO DAILY 12/15/20 12/15/20 Fluticasone Nasal [place] [Flonase 2 spr EA NOSTRIL HS 12/15/20 12/15/20 Nasal [place]] Losartan Potassium 100 mg PO DAILY 12/15/20 12/15/20 Montelukast [Singulair] 10 mg PO DAILY 12/15/20 12/15/20 Naproxen [Naprosyn] 500 mg PO BID PRN 12/15/20 12/15/20 hydroCHLOROthiazide [Hydrodiuril] 25 mg PO DAILY 12/15/20 12/15/20 Allergies Allergy/AdvReac Type Severity Reaction Status Date / Time Qdtludf-Fkv-Yde Reductase Allergy Cough Verified 12/15/20 13:45 Inhibitor Review of Systems ROS Statement: Those systems with pertinent positive or pertinent negative responses have been documented in the HPI. ROS Other: All systems not noted in ROS Statement are negative. Past Medical History Past Medical History: Hypertension, Pneumonia Additional Past Medical History / Comment(s): Chronic low back pain L4/L5, pt states asbestos exposure thru work, diverticulitis. History of Any Multi-Drug Resistant Organisms: None Reported Past Surgical History: Bowel Resection Additional Past Surgical History / Comment(s): Colonoscopy, bowel resection d/t diverticulitis. Past Anesthesia/Blood Transfusion Reactions: No Reported Reaction Past Psychological History: No Psychological Hx Reported Smoking Status: Former smoker Past Alcohol Use History: Occasional Past Drug Use History: None Reported - Past Family History Mother Family Medical History: No Reported History Father Family Medical History: Coronary Artery Disease (CAD), Myocardial Infarction ([place]) Additional Family Medical History / Comment(s): Pt believes his father has had more than one DC with the first one being at age 47yrs. Father has had open heart surgery twice and has several stents. General Exam - General Exam Comments Initial Comments: GENERAL: Patient is well-developed and well-nourished. Patient is nontoxic and in no acute distress. HEAD: Atraumatic, normocephalic. EYES: Pupils equal round and reactive to light, extraocular movements intact, sclera anicteric, conjunctiva are normal. Eyelids were unremarkable. ENT: TMs normal, nares patent, oropharynx clear without exudates. Moist mucous membranes. NECK: Normal range of motion, supple without lymphadenopathy or JVD. LUNGS: Unlabored respirations. Breath sounds clear to auscultation bilaterally and equal. No wheezes rales or rhonchi. HEART: Regular rate and rhythm without murmurs, rubs or gallops. ABDOMEN: Soft, nontender, normoactive bowel sounds. No guarding, no rebound. No masses appreciated. : Deferred MUSCULOSKELETAL: Normal extremities with adequate strength and normal range of motion, no pitting or edema. No clubbing or cyanosis. NEUROLOGICAL: Patient is alert and oriented x 3. Motor and sensory are also intact. Cranial nerves II through XII grossly intact. Symmetrical smile. Normal speech, normal gait. PSYCH: Normal mood, normal affect. SKIN: Warm, Dry, normal turgor, no rashes or lesions noted. Limitations: no limitations Course Vital Signs 12/15/20 12/15/20 11:19 13:13 Temperature 98.2 F Pulse Rate 83 71 Respiratory 18 18 Rate Blood Pressure 112/69 112/61 O2 Sat by Pulse 96 95 Oximetry Medical Decision Making - Medical Decision Making Patient is a 50-year-old male here for reexamination. He was diagnosed with Covid 10 days ago, symptoms began 11 days ago. His vitals are stable. EKG shows no acute process. X-rays reveal a right upper lobe infiltrate. Labs show an elevated white count of 17.0 which has increased from the last 10 days. His creatinine slightly up at 1.6, troponin is normal. Patient already started azithromycin, steroids, and inhaler 2 days ago. I recommended continuing with this regimen. COntinue to increase water and electrolyte intake, normal diet. Patient is stable for discharge. Patient is in agreement with this plan of care. Return parameters were discussed with the patient and they verbalized understanding. Case discussed with Dr. Ash. - Lab Data Result diagrams: 12/15/20 12:40 12/15/20 12:40 Lab Results 12/15/20 12/15/20 12/15/20 Range/Units 12:40 12:40 12:40 WBC 17.0 H (3.8-10.6) k/uL RBC 4.84 (4.30-5.90) m/uL Hgb 15.0 (13.0-17.5) gm/dL Hct 43.0 (39.0-53.0) % MCV 88.8 (80.0-100.0) fL MCH 30.9 (25.0-35.0) pg MCHC 34.8 (31.0-37.0) g/dL RDW 12.1 (11.5-15.5) % Plt Count 416 D (150-450) k/uL MPV 8.0 Neutrophils % 91 % Lymphocytes % 4 % Monocytes % 3 % Eosinophils % 2 % Basophils % 0 % Neutrophils # 15.4 H (1.3-7.7) k/uL Lymphocytes # 0.7 L (1.0-4.8) k/uL Monocytes # 0.4 (0-1.0) k/uL Eosinophils # 0.4 (0-0.7) k/uL Basophils # 0.0 (0-0.2) k/uL Sodium 140 (137-145) mmol/L Potassium 4.1 (3.5-5.1) mmol/L Chloride 103 (98-107) mmol/L Carbon Dioxide 25 (22-30) mmol/L Anion Gap 12 mmol/L BUN 31 H (9-20) mg/dL Creatinine 1.66 H (0.66-1.25) mg/dL Est GFR (CKD-EPI)AfAm 55 (>60 ml/min/1.73 sqM) Est GFR (CKD-EPI)NonAf 47 (>60 ml/min/1.73 sqM) Glucose 184 H (74-99) mg/dL Calcium 9.6 (8.4-10.2) mg/dL Total Bilirubin 0.9 (0.2-1.3) mg/dL AST 30 (17-59) U/L ALT 37 (4-49) U/L Alkaline Phosphatase 62 (38-126) U/L Troponin I <0.012 (0.000-0.034) ng/mL Total Protein 7.0 (6.3-8.2) g/dL Albumin 4.2 (3.5-5.0) g/dL - EKG Data EKG Comments: Normal sinus rhythm with sinus arrhythmia, no signs of acute ischemia. Ventricular rate 63, SC interval 164, QTC 406. Disposition Clinical Impression: Pneumonia due to COVID-19 virus Disposition: HOME SELF-CARE Condition: Stable Instructions (If sedation given, give patient instructions): Coronavirus Disease 2019 (COVID-19) Additional Instructions: Please return to the Emergency Department if symptoms worsen or any other concerns. Continue with course of antibiotics, steroids, inhaler as already prescribed. Is patient prescribed a controlled substance at d/c from ED?: No Referrals: Matthew Colon MD [Primary Care Provider] - 1-2 days Time of Disposition: 14:18
[2020-12-15 14:25] VITALS: BP 114/68
== END 2020-12-15 14:24 | disposition home or self-care (01) ==
LOC: EC 11:11
DX: U07.1 COVID-19 (principal); J12.82 Pneumonia due to coronavirus disease 2019; R91.8 Other nonspecific abnormal finding of lung field; I10 Essential (primary) hypertension; D72.829 Elevated white blood cell count, unspecified; G89.29 Other chronic pain; M54.5 Low back pain; Z79.899 Other long term (current) drug therapy; Z79.51 Long term (current) use of inhaled steroids; Z79.52 Long term (current) use of systemic steroids; Z88.8 Allergy status to other drugs, medicaments and biological substances; Z87.891 Personal history of nicotine dependence
CPT/HCPCS: 36415; 71046; 80053; 84484; 85025; 93005; 99285

== ENCOUNTER 2023-07-25 10:45 | Day surgery (SDC) | payer BC ==
[~2023-07-25 10:45] MED LIST: LACTATED RINGERS 1,000 ML IV SCH; ONDANSETRON 4 MG/2 ML VIAL IVP ONE; fentaNYL (PF) 50 MCG/ML 2 ML AMP IVP PRN
[2023-07-25 11:51] VITALS: RESP 16; TEMP 97.8
[2023-07-25] MEDS ORDERED: GLYCOPYRROLATE 0.2 MG/ML 2 ML VIAL ONE (12:10)
[2023-07-25] MEDS ORDERED: MIDAZOLAM 2 MG/2 ML VIAL ONE (12:10)
[2023-07-25] MEDS ORDERED: fentaNYL (PF) 50 MCG/ML 2 ML AMP ONE (12:10)
[2023-07-25] MEDS ORDERED: PROPOFOL 10 MG/ML 20 ML VIAL IV ONE (12:10)
[2023-07-25] MEDS ORDERED: KETAMINE HCL IN 0.9 % NACL 50 MG/5 ML SYRINGE ONE (12:10)
[2023-07-25] MEDS ORDERED: LIDOCAINE 1% INJ 10MG/ML (20 ML MDV) ONE (12:10)
[2023-07-25] MEDS ORDERED: LIDOCAINE 2% INJ 20 MG/ML INTRATRACH ONE ×2 (12:15→12:31)
--- NOTE | 2023-07-25 12:56 | P.PCN ---
Date of Procedure: 07/25/23 Preoperative Diagnosis: chronic cough Postoperative Diagnosis: tracheobronchitis, diffuse Procedure(s) Performed: Bronchiscopy and BAL Anesthesia: MAC Surgeon: Belem Sheikh Estimated Blood Loss (ml): 0 Pathology: none sent Condition: stable Disposition: same day Operative Findings: This is a flexible bronchoscopy that was done in the endoscopy suite. A consent was obtained. A timeout was obtained. Indication for the procedure is a chronic cough After achieving adequate sedation, the flexible bronchoscope was inserted to the right nostril. The bronchoscope was advanced into the posterior pharynx, and later on to the larynx and upper airway examination was done. Laryngeal structures were within normal limits. There was dynamic collapsibility of the upper airway probably related to underlying obstructive sleep apnea. Epiglottis, arytenoids and the vocal cords were all within normal limits. The vocal cord function mobility was also within normal limits. A total of 2 mL of 1% lidocaine was applied to the vocal cord and following that the bronchoscope was introduced into the upper trachea. Examination of the bronchus tree with him. There was diffuse mucosal inflammatory changes throughout the airways including the trachea by the mainstem bronchi and the various segments of the upper and the lower lobes. No endobronchial tumors or lesions. No foreign bodies. No lesions. No tumors. The mucosa was quite irritated and the surface was irritable and friable. A complete airway inspection was done and the visualized airways included the bilateral mainstem bronchi, right upper lobe bronchus, bronchus intermedius, right middle lobe bronchus and right lower lobe bronchus and the various 10 segments on the right, condition of the left side included left upper lobe bronchus and left lower bronchus and the various 8 segments on the left. A bronchial lavage of the lingula was done. A total of 60 mL of fluid was infused and 25-30 mL was aspirated. Aspirate was nonbloody. Bronchoscope was removed and the patient was transferred to recovery in stable condition. This is likely a postinfectious cough. We'll be awaiting the results of the BAL. We'll treat the patient accordingly.
[2023-07-25 13:14] VITALS: BP 117/76; PULSE 66
[2023-07-26 12:08] LABS: Appearance,BF Blood Tinged (Clear); RBC, Body Fluid 3685 /UL (0-2000)
[2023-07-29 10:02] LABS: Nucleated Cells, Body Fluid 65 /UL
== END 2023-07-25 13:18 | disposition home or self-care (01) ==
LOC: ORWHC2ENDO 10:45
PROVIDERS: ATTEND Internal Medicine Critical Care Medicine
DX: J40 Bronchitis, not specified as acute or chronic (principal); K21.9 Gastro-esophageal reflux disease without esophagitis; E78.5 Hyperlipidemia, unspecified; I10 Essential (primary) hypertension; G47.33 Obstructive sleep apnea (adult) (pediatric); E66.9 Obesity, unspecified; I25.10 Atherosclerotic heart disease of native coronary artery without angina pectoris; Z86.16 Personal history of COVID-19; Z87.891 Personal history of nicotine dependence; Z79.899 Other long term (current) drug therapy; Z79.51 Long term (current) use of inhaled steroids
CPT/HCPCS: 88108; 88305; 89050; 87070; 87205; 87116; 87102; 87206; 31624; J2001 ×2; J2250; J3010; J2704